=== PATIENT | female | born 1955 | race Caucasian/White ===

== ENCOUNTER 2021-03-26 17:25 | Inpatient (IN) | payer OTHER ==
[~2021-03-26] VITALS: Ht 154.9 cm; Wt 88.0 kg
[~2021-03-26 17:25] MED LIST: ECOTRIN81 MG PO; KAPSPARGO SPRI100 MG PO; LOSARTAN-HCTZ1 EAC2 PO; [UNRECOGNIZED DRUG - OTHER] PO
== END 2021-03-30 18:03 | disposition home or self-care (01) | DRG 743 ==
LOC: EDBD → SURH → O/R 03-29 06:00 → SURH 03-29 07:00 → OB/GYN 03-29 14:50 → CIR.AMB 04-03 09:09 → EDSTATUS 04-03 14:11
PROVIDERS: ADMIT Obstetrics & Gynecology Gynecologic Oncology; ATTEND Obstetrics & Gynecology Gynecologic Oncology
PROC: 0UT24ZZ Resection of Bilateral Ovaries, Percutaneous Endoscopic Approach (ICD-10-PCS; 2021-03-29)
PROC: 0UT74ZZ Resection of Bilateral Fallopian Tubes, Percutaneous Endoscopic Approach (ICD-10-PCS; 2021-03-29)
PROC: 07BC4ZZ Excision of Pelvis Lymphatic, Percutaneous Endoscopic Approach (ICD-10-PCS; 2021-03-29)
PROC: 0UT94ZZ Resection of Uterus, Percutaneous Endoscopic Approach (ICD-10-PCS; principal; 2021-03-29 07:00)
DX: N85.01 Benign endometrial hyperplasia (principal); N83.292 Other ovarian cyst, left side; N83.291 Other ovarian cyst, right side; N95.0 Postmenopausal bleeding